=== PATIENT | male | born 1995 | race Caucasian/White ===

== ENCOUNTER 2017-12-17 08:38 | Emergency (ER) | payer OTHER ==
[2017-12-17] MEDS ORDERED: Ondansetron HCl/PF 4 MG/2 ML Vial ONE (09:25)
== END 2017-12-17 10:08 | disposition home or self-care (01) ==
LOC: BURERS 08:38
DX: R11.2 Nausea with vomiting, unspecified (principal); R19.7 Diarrhea, unspecified; J45.909 Unspecified asthma, uncomplicated; F17.220 Nicotine dependence, chewing tobacco, uncomplicated
CPT/HCPCS: 96361; 96374; 96375; J2405